=== PATIENT | female | born 1995 | race Caucasian/White ===

== ENCOUNTER 2017-07-09 15:12 | Outpatient (CLI) | payer BC ==
--- NOTE | 2017-07-09 18:22 | ULT ---
RIGHT BREAST ULTRASOUND: 07/09/17 COMPARISON: None. HISTORY: Palpable masses in the right breast per the patient and the clinician. TECHNIQUE: Multiplanar dailey scale images were obtained in a target ultrasound of the right breast. FINDINGS: No cysts or masses are seen in the right breast. No suspicious shadowing is seen. Normal appearing br east parenchyma is seen. IMPRESSION: BI-RADS 1: Negative Routine annual screening mammography (at the age of 38) POS: [facility]
== END 2017-07-09 15:13 | disposition home or self-care (01) ==
LOC: ULT 15:12
PROVIDERS: ATTEND Nurse Practitioner Family
DX: N63.0 Unspecified lump in unspecified breast (principal); N64.4 Mastodynia